=== PATIENT | male | born 1990 | race Caucasian/White ===

== ENCOUNTER 2017-04-28 01:45 | Emergency (ER) | payer BC ==
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
[2017-04-28 03:43] VITALS: BP 121/67
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
== END 2017-04-28 03:40 ==
LOC: MW.ED 01:45
DX: F10.120 Alcohol abuse with intoxication, uncomplicated (principal)
CPT/HCPCS: 70450; 70450-26; 72125; 72125-26; 99283; 99284-25

== ENCOUNTER 2019-01-08 10:06 | Emergency (ER) | payer BC ==
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
[2019-01-08 10:21] VITALS: BP 145/94
== END 2019-01-08 10:30 | disposition home or self-care (01) ==
LOC: MW.ED 10:06
DX: R20.2 Paresthesia of skin (principal)
CPT/HCPCS: 99282; 99283